=== PATIENT | female | born 1940 | race African-American/Black ===

== ENCOUNTER → 2017-03-11 | Outpatient (CLI) | payer OTHER ==
[~2017-03-11] MED LIST: ACETAMINOPHEN-1 EAC1 OR; ALPRAZOLAM0.5 M1 PO; CENTRUM SILVER1 EAC4 PO; CENTRUM TABLET1 TAB OR; IRON OR; IRON325 PO; LEVOTHROID PO; LIPITOR10 MG PO; NEXIUM40 MG PO; PRINZIDE 20-121 EACH PO; PRINZIDE 20-251 EACH PO; SYNTHROID; SYNTHROID112 MCG OR; TRAMADOL 50 MG50 MG PO; XANAX 0.5 MG0.5 M1 OR; XANAX 0.5 MG0.5 M1 PO; [UNRECOGNIZED DRUG - OTHER] OR
== END ==
LOC: CAT 08:05
DX: J63.2 Berylliosis (principal); R06.02 Shortness of breath

== ENCOUNTER → 2017-11-13 | Outpatient (CLI) | payer OTHER ==
[~2017-11-13] MED LIST changes: +APAP650 PO
[2017-11-13 13:45] VITALS: BP 177/75
[2017-11-13 14:35] VITALS: BP 140/68
== END ==
LOC: OPONC 00:45
DX: D50.9 Iron deficiency anemia, unspecified (principal)
CPT/HCPCS: 95000

== ENCOUNTER → 2017-11-20 | Outpatient (CLI) | payer OTHER ==
[2017-11-20 12:00] VITALS: BP 138/74
[2017-11-20 13:15] VITALS: BP 136/80
== END ==
LOC: OPONC 00:22
DX: D50.9 Iron deficiency anemia, unspecified (principal); N18.1 Chronic kidney disease, stage 1
CPT/HCPCS: 95000

== ENCOUNTER → 2020-07-18 | Outpatient (CLI) | payer OTHER | LOC: RAD 08:48 | PROVIDERS: ATTEND Pediatrics | DX: R06.02 Shortness of breath (principal) ==

== ENCOUNTER → 2020-08-26 | Outpatient (CLI) | payer OTHER | LOC: LAB 10:54 | PROVIDERS: ATTEND Pediatrics | DX: Z01.812 Encounter for preprocedural laboratory examination (principal); Z20.822 Contact with and (suspected) exposure to COVID-19 ==

== ENCOUNTER → 2020-09-30 | Outpatient (CLI) | payer OTHER | LOC: LAB 08:44 | PROVIDERS: ATTEND Pediatrics | DX: Z01.812 Encounter for preprocedural laboratory examination (principal); Z20.822 Contact with and (suspected) exposure to COVID-19 ==

== ENCOUNTER → 2020-10-02 | Outpatient (CLI) | payer OTHER ==
--- NOTE | 2020-10-05 07:31 | SLE ---
[facility] [place] [address] POLYSOMNOGRAPHY STUDY Name: JUAN GUTIERREZ [id number] Admission: 10/02/20 Attend Phys: Rom Leone MD Discharge: Date of : 40 Report #: [id number] THIS REPORT FOR: cc: Aníbal Romero MD, Neal A. MD Khan, Aman U. MD ~ DATE OF SERVICE: 10/02/2020 SLEEP STUDY ATTENDING PHYSICIAN: Dr. Rom Leone The patient is 80 years old who weighs 279 pounds with a BMI of 41.2. The patient's Fluker score was 9. The patient underwent split night study performed at [facility]. During the night of the study, the patient spent 481 minutes in bed and slept for 304 minutes with a sleep efficiency of 63%. Sleep latency was 21 minutes with a REM latency of 157 minutes. Sleep architecture showed increased stage 1 and stage 2 sleep, absent slow wave and reduced REM sleep, which was 13% of the total sleep time. During the initial diagnostic portion of the study, the patient spent 258 minutes in bed and slept for 148 minutes. During that time, the patient had 30 obstructive apneas, 1 mixed apnea, no central apneas and 130 hypopneas. The patient's AHI was 65.3 per hour with a REM AHI of 120 per hour and a supine AHI of 57 per hour. EKG monitoring revealed an average heart rate of 78 beats per minute. No sustained arrhythmias observed. No significant PLM seen. Nocturnal oximetry study revealed an average oxygen saturation of 93% with the lowest of 64%. 19.5 minutes were spent with oxygen saturation of less than 89%. Another 4 minutes with saturation of less than 79%. The patient met the criteria for CPAP initiation. It was started at 8 cm water and titrated up to 13 cm water. At the final pressure, the patient slept for 96 minutes. The patient had 35 minutes of supine REM sleep. The patient's AHI was reduced to 5 per hour. The patient's oxygen saturation at the initiation of 13 cm water drop down to as low as 58% while the patient was in REM sleep; however, during the rest of the REM sleep and at the same pressure, oxygen saturation remained above 88%. [address] [address] POLYSOMNOGRAPHY STUDY Name: JUAN GUTIERREZ Room #: REG [facility] Katia#: [id number] Admission: 10/02/20 Attend Phys: Rom Leone MD Discharge: Date of : 40 Report #: [id number] IMPRESSION: 1. Severe obstructive sleep apnea at an AHI of 65 per hour with a REM AHI of 120 per hour. 2. Nocturnal hypoxia secondary to obstructive sleep apnea, but resolved with CPAP. 3. No clinically significant periodic limb movements of sleep. 4. 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 RECOMMENDATIONS: 1. CPAP at 13 cm water should be used on a nightly basis. It completely eliminated the patient's sleep apnea. 2. Follow up in 4-6 weeks to assess compliance with CPAP and to document clinical improvement. 3. Weight loss is strongly advised. 4. Avoid YARN HAULER depressants. 5. Cautioned regarding driving until symptoms of sleep apnea resolve with the use of CPAP. 6. The patient had reduced sleep efficiency. If patient's insomnia persists despite effective use of CPAP, then it should be further evaluated and treated according to the etiology. <ELECTRONICALLY SIGNED> By: Colt Best MD 10/05/20 [id number] Colt Best MD /nt
== END ==
LOC: SLEEPLAB 15:49
PROVIDERS: ATTEND Pediatrics
DX: G47.33 Obstructive sleep apnea (adult) (pediatric) (principal); G47.34 Idiopathic sleep related nonobstructive alveolar hypoventilation; G47.8 Other sleep disorders; Z88.0 Allergy status to penicillin; Z88.8 Allergy status to other drugs, medicaments and biological substances; Z68.41 Body mass index [BMI] 40.0-44.9, adult

== ENCOUNTER → 2020-10-10 | Outpatient (CLI) | payer OTHER | LOC: CAT 08-02 08:04 | PROVIDERS: ATTEND Pediatrics | DX: G47.33 Obstructive sleep apnea (adult) (pediatric) (principal); R06.02 Shortness of breath; J98.4 Other disorders of lung ==

== ENCOUNTER → 2021-09-15 | Outpatient (CLI) | payer OTHER ==
[2021-09-15 12:10] VITALS: BP 155/86
[2021-09-15 12:40] VITALS: BP 148/72
[2021-09-15 12:55] VITALS: BP 148/72
--- NOTE | 2021-09-15 12:55 | NUR ---
HERE FOR 1ST OF 4 VENOFER INFUSIONS. PT HAS HAD IV IRON THERAPY IN THE PAST. REVIEWED ROLE OF IRON, SCHEDULE, WHAT TO EXPECT, WHAT SIDE EFFECTS TO REPORT. HAS DIFFICULT VENOUS ACCESS. TOLERATED INFUSION WITHOUT INCIDENT, NO S/S REACTION. SCHEDULED TO RETURN AGAIN ON SATURDAY WHEN VASCULAR ACCESS TEAM IS HERE IN EVENT THEIR ASSISTANCE IS NEEDED WITH STARTING IV. DISMISSED IN STABLE CONDITION.
== END ==
LOC: OPONC 08:51
PROVIDERS: ATTEND Family Medicine
DX: D50.9 Iron deficiency anemia, unspecified (principal)
CPT/HCPCS: 95000

== ENCOUNTER → 2021-09-19 | Outpatient (CLI) | payer OTHER ==
[2021-09-19 11:00] VITALS: BP 148/73
[2021-09-19 11:30] VITALS: BP 157/73
--- NOTE | 2021-09-19 11:51 | NUR ---
PT HERE FOR DOSE 2/5 OF IV VENOFER. ARRIVED IN W/C WITH FRIEND. REPORTS NO NEW SYMPTOMS AFTER HER FIRST DOSE LAST WEEK. STATES SHE ALREADY FEELS BETTER AND HAS MORE ENERGY. UNABLE TO ACCESS VEINS ON FIRST ATTEMPT. CALLED IV TEAM WHO INSERTED IV IN R FOREARM USING ULTRASOUND. PT TOLERATED VENOFER WITH NO COMPLICATIONS. VSS POST-INFUSION. IV REMOVED. SCHEDULED NEXT 3 APPTS WITH PT. RETURNS ON SATURDAY. LEFT UNIT VIA WHEELCHAIR IN STABLE CONDITION.
== END ==
LOC: OPONC 10:53
PROVIDERS: ATTEND Family Medicine
DX: D50.9 Iron deficiency anemia, unspecified (principal)
CPT/HCPCS: 95000

== ENCOUNTER → 2021-09-22 | Outpatient (CLI) | payer OTHER ==
[2021-09-22 13:30] VITALS: BP 182/79
[2021-09-22 14:25] VITALS: BP 151/69
--- NOTE | 2021-09-22 14:41 | NUR ---
HERE FOR HER 3RD OF 5 VENOFER INFUSIONS. REPORTS ALREADY FEELING MUCH BETTER. DENIES NOTING ANY UNTOWARD SIDE EFFECTS POST EACH INFUSION. DOES STILL HAVE SOME BILAT LE EDEMA BUT EDEMA L HAND IS RESOLVED. VAT NURSE STARTED IV WITH USE OF ULTRASOUND TODAY. PT TOLERATED INFUSION OVER 30 MIN, NO S/S REACTION. VSS POST. DISMISSED IN STABLE CONDITION. SCHEDULED TO RETURN AGAIN ON SATURDAY.
== END ==
LOC: OPONC 13:49
PROVIDERS: ATTEND Family Medicine
DX: D50.9 Iron deficiency anemia, unspecified (principal)
CPT/HCPCS: 95000

== ENCOUNTER → 2021-09-25 | Outpatient (CLI) | payer OTHER ==
[2021-09-25 12:45] VITALS: BP 150/64
[2021-09-25 14:00] VITALS: BP 157/71
--- NOTE | 2021-09-25 14:39 | NUR ---
PT HERE FOR DOSE 4/5 OF VENOFER. STATES SHE CONTINUES TO FEEL BETTER AND HAVE MORE ENERGY. VAT CALLED TO OBTAIN IV ACCESS. IV INSERTED WITH ULTRASOUND IN LEFT FOREARM. PT TOLERATED INFUSION WITH NO COMPLICATIONS. VSS THROUGHOUT. IV REMOVED. PT LEFT UNIT IN STABLE CONDITION VIA WHEELCHAIR. SCHEDUELD TO RETURN FOR LAST DOSE ON SATURDAY.
== END ==
LOC: OPONC 12:49
PROVIDERS: ATTEND Family Medicine
DX: D50.9 Iron deficiency anemia, unspecified (principal)
CPT/HCPCS: 95000

== ENCOUNTER → 2021-09-27 | Outpatient (CLI) | payer OTHER ==
[2021-09-27 10:50] VITALS: BP 147/72
[2021-09-27 11:50] VITALS: BP 152/73
--- NOTE | 2021-09-27 12:05 | NUR ---
HERE FOR LAST DOSE (), IRON SUCROSE. STATES SHE IS FEELING SO MUCH STRONGER AND BETTER. DENIES ANY UNTOWARD EFFECTS FROM THE INFUSIONS. IV STARTED BY VAT NURSE. TOLERATED TODAY'S INFUSION WITHOUT INCIDENT, VSS. DISMISSED POST INFUSION IN STABLE CONDITION.
== END ==
LOC: OPONC 10:36
PROVIDERS: ATTEND Family Medicine
DX: D50.9 Iron deficiency anemia, unspecified (principal)
CPT/HCPCS: 95000